=== PATIENT | female | born 2005 | race Caucasian/White ===

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

== ENCOUNTER → 2024-12-22 | Outpatient (CLI) | payer OTHER ==
[~2024-12-22] MED LIST changes: +IBUP800 PO; +LABE100 PO
[2024-12-22 13:29] LABS: Bacterial Vaginosis PCR Negative (NEGATIVE); Candida Group, PCR NOT DETECTED (NOT DETECT); Candida glabrata-krusei, PCR NOT DETECTED (NOT DETECT)
[2024-12-22 18:39] LABS: Chlamydia Trachomatis Vaginal NOT DETECTED (NOT DETECT); Neisseria Gonorrhoea Vaginal NOT DETECTED (NOT DETECT)
[2024-12-25 08:20] LABS: HIV 1,2 COMBO ANTIGEN/ANTIBODY Negative (Negative)
== END ==
LOC: LAB 11:09 → LAB SHORT 11:09
PROVIDERS: Student in an Organized Health Care Education/Training Program
DX: Z11.3 Encounter for screening for infections with a predominantly sexual mode of transmission (principal); R30.0 Dysuria
CPT/HCPCS: 81515; 86592; 87077; 87086; 87186; 87389; 87491; 87591